=== PATIENT | female | born 1965 | race Caucasian/White ===

== ENCOUNTER → 2021-07-03 08:37 | Outpatient (CLI) | payer BC, SELFPAY ==
--- NOTE | ~2021-07-03 | CT_ITS ---
EXAMINATION: CT abdomen wo/w con EXAM DATE: 07/03/2021 09:16 INDICATION: Renal mass . TECHNIQUE: Spiral CT of the abdomen was performed without and then with intravenous injection of 100 mL Omnipaque 350. Axial, coronal and sagittal images of the abdomen were reviewed. The dose-length product (DLP) for this examination was 716.70 mGy-cm. The exposure was tailored according to patien t size (auto mA exposure control), and iterative reconstruction (ASIR) was used as additional dose re duction technique. Comparison is made to prior examination from 2018. FINDINGS: Retroperitoneal lymphadenopathy, with a left periaortic lymph node measuring 2.6 x 2.6 cm, and several similar sized right retrocaval lymph nodes. These are increased in size compared to prior study. Again there is mesenteric lymphadenopathy, with the largest node identified measuring 2.6 x 2 .3 cm, slight increase compared to prior study. The liver, spleen, adrenal glands and pancreas are u nremarkable. Few small gallbladder wall calcifications, gallbladder otherwise unremarkable. Portal and splenic veins are patent. Kidneys enhance symmetrically. There is no hydronephrosis. There is mild scattered arteriosclerotic disease. There is extensive colonic diverticulosis. There is no adjacent inflammatory change to suggest diver ticulitis. The stomach and small bowel are unremarkable. There is expected amount of colonic stool. No free intraperitoneal gas. The heart is normal in size. There are no pericardial or pleural e ffusions. The lung bases are unremarkable. There are no osteoblastic or osteolytic lesions identifi ed. IMPRESSION: 1. Retroperitoneal and mesenteric lymphadenopathy, differential diagnosis including lymphoma, carcino id tumor, other metastatic disease, granulomatous disease. Could be amenable to CT-guided percutaneou s retroperitoneal biopsy. 2. Extensive colonic diverticulosis. 3. No renal mass. I phoned office of Fredi Gore MD at 07/03/2021 16:04 CARDIOLOGIST. He and physician driller's assistant not av ailable at this time. Will try tomorrow. Reviewed, dictated and finalized at location B. IOLOGIST IMPRESSION: 1. Retroperitoneal and mesenteric lymphadenopathy, differential diagnosis inclu ding lymphoma, carcinoid tumor, other metastatic disease, granulomatous disease . Could be amenable to CT-guided percutaneous retroperitoneal biopsy. 2. Extensive colonic diverticulosis. 3. No renal mass. I phoned office of Fredi Gore MD at 07/03/2021 16:04 CARDIOLOGIST. He and phys danielan driller's assistant not available at this time. Will try tomorrow.
[2021-07-03 09:03] LABS: Estimated Glomerular Filt Rate > 60
== END ==
PROVIDERS: PCP Family Medicine; Visit Provider Urology
DX: N28.89 Other specified disorders of kidney and ureter (principal); R59.0 Localized enlarged lymph nodes; K57.90 Diverticulosis of intestine, part unspecified, without perforation or abscess without bleeding
CPT/HCPCS: 74170; Q9967

== ENCOUNTER 2021-07-25 01:46 | Outpatient (CLI) | payer BC, SELFPAY ==
[2021-07-18 10:54] VITALS: BMI 28.3
--- NOTE | 2021-07-18 10:54 | PC.NURSE ---
Pre Radiology instructions Report to the Outpatient Waiting Room, entrance under the green pavilion located off [facility], at time 0900 on date 07/25/21. Procedure Time: 1100. One visitor will be allowed to accompany the patient into the hospital. The visitor will be instructed to remain with patient at all times or leave the building. We will allow the visitor to come back to the postoperative area when patient is ready. You and your visitor will be asked a series of questions to screen for COVID 19 for your protection. A mask is required within the hospital. Pre-procedure COVID Testing Requirements: No COVID Test needed if: (proof is required; if not received patient will have Rapid Test prior to entry)- Patient has received COVID Vaccine at least 14 days prior to procedure date or- Patient has positive COVID test result within last 90 days of procedure date. Patients are to have no food or drink 6 hours prior to procedure time Driving will be restricted after the procedure, you must have a person to drive you home. Labs will be drawn in preop area and once reviewed, you will be taken to radiology area for procedure. When the procedure is completed, you will be taken to outpatient where you will be monitored for several hours. You may have one visitor in this area. Other than holding anti-coagulants, patient may take other medication(s) as scheduled. Prior to your appointment date patients are instructed to hold anti-coagulants after discussing with ordering provider to stop. If unable to discontinue anti-coagulants please notify radiologist. No aspirin or warfarin (Coumadin) for 7 days prior to the procedure. No clopidogrel (Plavix), ticagrelor (Brilinta), prasugrel (Effient) or dabigatran (Pradaxa) for 5 days prior to the procedure. No rivaroxaban (Xarelto), apixaban (Eliquis), dipyridamole (Aggrenox or Persantine) or cilostazol (Pletal) for 2 days prior to the procedure. Medications to discontinue per physician: N/A Date to take last dose: N/A Please leave all valuables, including medications, at home the day of procedure. The hospital will not accept responsibility for valuables. Wear comfortable, loose fitting clothing. Follow any additional instructions given to you from ordering provider. Telephone instructions given to AUDI FITZGERALD and asked if any additional questions and then verbalized understanding. Patient advised to call scheduling provider office or registration scheduling [phone] if any additional questions.
[2021-07-25] VITALS (8 sets, daily range): BP systolic 105–122; BP diastolic 58–68; PULSE 68–89; RESP 16–20; TEMP 36.7; O2SAT 97–100
--- NOTE | ~2021-07-25 | CT_ITS ---
. EXAMINATION: CT biopsy lymph node DATE: 07/25/2021 11:47 INDICATION: Peroneal lymph node enlargement TECHNIQUE: The procedure including the risks and benefits was discussed with the patient. Risks discu ssed included bleeding and infection. The patient understood the risks and agreed to proceed. The sk in overlying the paraspinal left flank was prepped and draped in usual sterile fashion. Anesthetic w as administered with 1% lidocaine subcutaneously. A 16 gauge outer needle was advanced under CT guid ance to the lesion of interest. An 18 gauge core biopsy needle was then advanced into the lesion. 8 c ore biopsy specimens were obtained, 5 placed in RPMI media and 3 in formalin. The outer needle was re moved and the entry site was cleaned and dressed. There were no immediate complications. The dose-le ngth product was 214.32 mGy-cm. FINDINGS: CT images demonstrate the outer needle tip at the posterior margin of a 2.9 cm left para-ao rtic retroperitoneal lymph node. IMPRESSION: 1. Successful CT-guided biopsy of a 2.9 cm left para-aortic lymph node. Reviewed, dictated and finalized at location A.
[2021-07-25 10:08] LABS: Mean Platelet Volume 9.6 fl (7.4-10.4); Platelet Count Result 334 k/mm3 (150-375)
--- NOTE | 2021-07-25 10:13 | SUR.PREOP ---
FATHER, MALIA HERE WITH PATIENT. CONTACT INFO OBTAINED FOR FATHER
[2021-07-25 10:39] LABS: INR 1.3; Prothrombin Time 15.2 Seconds (11.1-14.7)
== END 2021-07-25 14:15 | disposition home or self-care (01) ==
PROVIDERS: PCP Family Medicine; Referring Provider Urology; Visit Provider Radiology Diagnostic Radiology
PROC: (CPT 77012; principal; 2021-07-25 11:00)
DX: R59.0 Localized enlarged lymph nodes (principal)
CPT/HCPCS: 36415; 38505; 77012; 85049; 85610; 88184; 88305; 88341; 88342; 88364; 88365

== ENCOUNTER 2021-09-05 12:11 | Outpatient (CLI) | payer BC, SELFPAY ==
--- NOTE | ~2021-09-05 | PE_ITS ---
EXAMINATION: PET skull to mid thigh DATE: 09/05/2021 13:58 INDICATION: Hodgkin's lymphoma TECHNIQUE: Blood glucose level was 95 mg/dL. 9.612 mCi of 18-fluorodeoxyglucose (18-FDG) was administ ered i.v. Low dose computed tomography (CT) images were acquired from the base of the brain to the pr oximal thighs for attenuation correction and anatomic localization. Positron emission tomography (PET ) images were acquired in the same distribution beginning 56 minutes after injection. The dose-length product (DLP) was 483.21 mGy-cm. COMPARISON: 07/03/2021 FINDINGS: Head/neck: FDG uptake in the oral cavity and vocal cords without suspicious CT correlate is likely ph ysiologic. There are matted left supraclavicular lymph nodes measuring approximately 3.2 x 1.9 cm in total with abnormal FDG uptake and an SUV max of 4.8. Chest: No abnormal FDG uptake is identified. There is mild dependent atelectasis. The lungs are free of focal airspace opacities. No pathologically enlarged thoracic lymph nodes are identified. The hear t size is normal. There is no pleural effusion or pneumothorax. Abdomen/pelvis/proximal thighs: There is retroperitoneal lymphadenopathy at the level of the kidneys with abnormal FDG uptake and an SUV max of 15. The largest retroperitoneal lymph node measures approx imately 3.2 x 2.4 cm at the level of the right kidney. There is also lymphadenopathy the small bowel mesentery and anterior to the proximal abdominal aorta with abnormal FDG uptake. Physiologic FDG acti vity is present in the bowel and urinary tract. The liver, spleen, pancreas, and adrenal glands are n ormal. Stones are present in the nondistended gallbladder. The kidneys are unremarkable. No pelvic ly mphadenopathy is identified. The appendix is normal. Colonic diverticulosis is present without eviden ce of diverticulitis. Musculoskeletal: No abnormal FDG uptake is identified. IMPRESSION: 1. Left supraclavicular, retroperitoneal, and mesenteric lymphadenopathy with abnormal FDG uptake, co nsistent with Hodgkin's lymphoma. Reviewed, dictated and finalized at location B. IMPRESSION: 1. Left supraclavicular, retroperitoneal, and mesenteric lymphadenopathy with a bnormal FDG uptake, consistent with Hodgkin's lymphoma.
[2021-09-05 12:33] LABS: Glucose Point of Care 95 mg/dl (65-105)
== END 2021-09-05 12:12 | disposition home or self-care (01) ==
PROVIDERS: PCP Family Medicine; Visit Provider Internal Medicine Hematology & Oncology
DX: C81.03 Nodular lymphocyte predominant Hodgkin lymphoma, intra-abdominal lymph nodes (principal)
CPT/HCPCS: 78815; A9552

== ENCOUNTER 2021-10-07 01:03 | Day surgery (SDC) | payer BC, SELFPAY ==
--- NOTE | 2021-10-01 15:34 | SUR.PREOP ---
Report to the Outpatient Waiting Room, entrance under the green pavilion located off [facility], at time 0830 on date 10/07/21. OR Time: 1030. - You and your visitor will be asked a series of questions to screen for COVID 19 for your protection. - Only one visitor is allowed at this time. - The patient visitor is requested to leave or wait in car when not with patient. - A mask is required within the hospital. Patients may have clear liquids (water, carbonated beverages, clear teas, apple juice) until 3 hours prior to surgery with a maximum of 20 ounces. - No food from midnight until time of surgery - Infants may have breast milk until 4 hours before surgery, infant formula 6 hours prior to surgery. - Children will be allowed to drink immediately following surgery. If applicable, please bring a bottle or sippy cup to assist with drinking. Juice, water, soda, and popsicles are readily available. For infants on formula, please bring formula the day of surgery. Pacifiers are allowed. Please no make-up, nail nigerien, hairspray, perfume, deodorant, or body powder the day of surgery. No jewelry (including any body piercings) or valuables the day of surgery, leave them at home. Please take a shower or bath the night before, or the morning of, surgery with an antibacterial soap. Wear comfortable, loose fitting clothing. Children are encouraged to wear pajamas. - Jewelry must be removed prior to entering the operating room. Rings and piercings that are not removed may be cut off. - The hospital will not accept responsibility for valuables. - Please leave all valuables, including medications, at home the day of surgery. If you are going home after surgery, a licensed tour driver must drive you home. - NO public transportation without another adult. - We recommend that an adult stay with you for 24 hours following discharge. - We also recommend that you do not drive, make important decision, drink alcoholic beverages, or take any drugs that were not prescribed by your health care provider for at least 24 hours after your discharge time. For Pediatric surgeries, we recommend two adults accompany the child home (only one inside the building at this time). Follow any additional instructions given to you from your surgeon. If you or anyone in your household have experienced Covid symptoms in the past week, please notify your surgeon or the nurse liaison at the phone number below for possible testing. Telephone instructions given to AUDI FITZGERALD and asked if any additional questions and then verbalized understanding. Patient advised to call surgeon office or pre surgery nurse liaison [phone] if any additional questions.
[2021-10-01 15:44] VITALS: BMI 28.3
[2021-10-07] VITALS (9 sets, daily range): BP systolic 98–154; BP diastolic 59–81; PULSE 63–76; RESP 12–18; TEMP 35.8–36.4; O2SAT 96–100
--- NOTE | 2021-10-07 09:17 | WPDANESEPPF ---
Anes - Initial Pre Proc Eval Procedure: Operation Date: 10/07/21 10:30 Proposed Procedures p Left Supraclavicular Lymph Node Biopsy - Vince Dunn MD Date/Time: 10/07/21 09:17 Surgeon: Vince Dunn MD Pre Op Diagnosis: lymphadenopathy Patient Data Age: 56 Gender: F Height: 1.57 m Weight: 71.2 kg Last Vital Signs Temp 36.2 C L 10/07/21 08:58 Pulse 76 10/07/21 08:58 Resp 16 10/07/21 08:58 BP 131/79 10/07/21 08:58 Pulse Ox 98 10/07/21 08:58 O2 Del Method Room Air 10/07/21 08:58 Allergies Allergy/AdvReac Type Severity Reaction Status Date / Time Penicillins Allergy Mild Rash Verified 10/07/21 08:52 Sulfa (Sulfonamide Allergy Unknown Rash Verified 10/07/21 08:52 Antibiotics) Home Medications Medication Instructions Recorded Confirmed Type cetirizine 10 mg tablet 10 mg PO DAILY 07/18/21 10/07/21 History Patient hx anesthesia problems: none Family hx anesthesia problems: none Results Review: All pre-operative results and documents have been reviewed as part of the pre-operative evaluation. [facility] Past Medical History Medical History Arthralgia BMI 28.0-28.9,adult delivery delivered Dermatitis Dietary counseling and surveillance (01/07/18) Fistula Internal impingement of left shoulder Retroperitoneal lymphadenopathy Surgical History Surgical History H/O section Family History Family History Mother Family history of malignant neoplasm of breast in first degree relative Father Hypertension Mother Breast cancer Family history of lung cancer Other Carcinoma of colon Social History Social History Smoking status: Never smoker Alcohol intake: current Alcohol use details: Socially Substance use: never Substance use type: does not use Additional occupation/education comments: Teacher Gender identity (if verbalized by the patient): Female Spiritual care concerns: No Anes - Eval Final PreProcedure Day of Procedure 10/07/21 09:17 Patient weight: overweight Heart: regular rate and rhythm Lungs: clear to auscultation Airway: Mallampati scale class II Neurological: alert and oriented Last oral intake: >/= 8 hours ASA classification: II Emergent: no Anesthetic plan: proceed Anesthesia type and monitoring: general LMA and standard monitoring Results Review: All pre-operative results and documents have been reviewed as part of the pre-operative evaluation. Informed Consent: The patient's anesthetic plan and its attendant risks and benefits were discussed with the patient/family/POA. Questions were solicited and answers provided to the satisfaction of the patient/family/POA.
[2021-10-07] MEDS: LACTATED RINGERS 1,000 ML 30 ML IV CONT (09:18)
--- NOTE | 2021-10-07 09:29 | WPDHPUPDATE1 ---
History and Physical Update Update Date/Time: 10/07/21 09:29 History and Physical has been reviewed, including an updated exam of the patient. There are NO changes in the patient's condition. Risks, benefits, and alternatives have been discussed and questions answered. Patient agrees to proceed with procedure.
[2021-10-07] MEDS: LIDO 2%/EPINEPHRINE 1:100,000 20 ML VIAL 5 ML INFILTRATE (09:31)
--- NOTE | 2021-10-07 11:59 | SUR.PHASEI ---
1158: Simple mask removed.
--- NOTE | 2021-10-11 16:46 | W.PM.PROC2 ---
Procedure Note - Detailed Date of Procedure 10/07/21 Pre-op Diagnosis 1.lymphadenopathy 2. Status post core biopsy of retroperitoneal lymph nodes suggestive of possible Hodgkin's lymphoma Post-op Diagnosis Same Procedure Performed left supraclavicular lymph node biopsy. Surgeon Vince Dunn MD Outsole Tacker WILNER Do, OR 1st assist Indications please see the outpatient history and physical. The patient has been noted on CT scan and PET scan to have abnormal lymphadenopathy in the retroperitoneum and mesentery. On recent PET scan she also had hot lymph nodes in the supraclavicular area on the left neck. Because these were the most easily to reach for complete lymph node excision to identify better the architecture of lymph nodes and possibly categorize her lymphoma I was asked to consider a supraclavicular lymph node biopsy on the left. The risks, benefits, possible complications were discussed with the patient she seems understand wished to proceed. Findings There were palpable lymph nodes in the supraclavicular area both before and after making the incision. Initial 2 x 3 cm area of fatty tissue removed palpated as if there was at least 1 greater than 1.5 cm lymph node within it. (Fresh gross exam revealed a 2.2 cm lymph node ) this will be processed. However, because grossly looked fatty replaced Dr. cheryl england asked me to consider removing more tissue for further evaluation. Upon palpation another area of nearby lymphadenopathy was identified this was elevated with an Allis and removed. Multiple clips were placed so these will marked the site of the biopsy. At the end of the procedure there were no other palpable lymph nodes within the left supraclavicular space that I can detect. Description of Procedure Patient was placed in the supine position the operative table her head turned slightly to the right and the entire neck and upper chest prepped and draped in usual sterile fashion. Time-out was then performed confirming patient site of surgery being a left supraclavicular area of the chest and neck. Following this palpation of the neck was undertaken and I outlined a transverse incision directly over the palpable fullness just above the left clavicle near the clavicular head. then local anesthetic using 2% xylocaine with epinephrine was injected along the proposed line of incision. A Transverse incision about 3 cm in length was made and this was carried down through the subcutaneous tissues & we carefully spread the muscle in this area and fatty tissue and a fairly large longitudinally running vein were identified. I carefully dissected with a baby right angle close to the vein and we were able to pull up what appeared to be fat containing lymphoid tissue. I then serially dissected around this placing clips on the portions of lymphatics or vessels that were to stay in the patient and then using Bovie cautery with a needle tip to divide the tissues coming to the specimen to be removed. A fatty area suspected of containing lymph nodes about 3 x 2 cm in size was able to be extracted from this area. Because no obviously abnormal lymph nodes were identified during this dissection, this tissue was sent for gross exam to be sectioned looking for lymph nodes. We then achieved hemostasis within the wound which essentially was achieved as we went. We then waited for pathology to call back. Dr. Watosn called back and stated that slicing the tissue showed that there was 1 large node within the tissue that I sent that was 2.2 cm in size but appeared to be largely fatty replaced. Therefore, he recommended going ahead and removing more tissue if there is anything that I could feel in the area. I explained to him that the PET scan showed matted small lymph nodes in the area nothing is big is 2.2 cm in size but he seemed to maintain that this appeared to be a fatty replaced large lymph node. Therefore, I went back to the field and carefully palpated
== END 2021-10-07 13:14 | disposition home or self-care (01) ==
PROVIDERS: PCP Family Medicine; Visit Provider Surgery
PROC: (CPT 38525; principal; 2021-10-07 10:30)
DX: R59.0 Localized enlarged lymph nodes (principal)
CPT/HCPCS: 38525; 88184; 88305; 88329; C1713; J1100; J2250; J2405; J2704; J3010; J7120

== ENCOUNTER 2021-12-23 14:45 | Outpatient (CLI) | payer OTHER, SELFPAY ==
--- NOTE | 2021-12-23 | ECHO_ITS ---
Patient Info Name: Sarah Shannon Age: 56 years : 1965 Gender: Female Ht: 62 in Wt: 150 lbs BSA: 1.74 m2 HR: 68 bpm BP: 135 / 75 mmHg Heart Rhythm: Sinus Rhythm Technical Quality: Good Exam Date: 12/23/2021 3:20 PM Exam Location: [facility] Patient Status: Outpatient Admit Date: 12/23/2021 Staff Ordering Physician: Shanna Diego MD Exam Proctor: Malena Trinh RDCS Attending Provider: Shanna Diego MD Referring Physician: Brandie MARSHALL; Exam Type: CA echo doppler color flow Study Info Indications Z79.899 - HIGH RISK MEDICATIONS LONG-TERM USE Complete two-dimensional, color flow and Doppler transthoracic echocardiogram is performed. Summary 1. Complete two-dimensional, color flow and Doppler transthoracic echocardiogram is performed. 2. Left ventricular chamber dimension is normal. 3. Left ventricular systolic function is normal, estimated at 65-70%. 4. There is no increased left ventricular wall thickness. 5. The left ventricular diastolic function is normal. 6. Global longitudinal strain is normal at -21 %. 7. There is trace tricuspid valve regurgitation. 8. No pulmonary hypertension, estimated pulmonary arterial systolic pressure is 29 mmHg. 9. There is trace mitral valve regurgitation. 10. There is no aortic valve stenosis. Left Ventricle Left ventricular chamber dimension is normal. Left ventricular systolic function is normal, estimated at 65-70%. There is no increased left ventricular wall thickness. The left ventricular diastolic function is normal. Global longitudinal strain is normal at -21 %. Right Ventricle Right ventricular chamber dimension is normal. Right ventricular systolic function is normal. Left Atria Left atrial chamber dimension is normal. Right Atria Right atrial chamber dimension is normal. Aortic Valve The aortic valve is probable trileaflet. There is mild aortic valve sclerosis. There is no aortic valve stenosis. There is no aortic valve regurgitation. Pulmonic Valve The pulmonic valve is not well visualized. Mitral Valve The mitral valve has normal leaflets. There is trace mitral valve regurgitation. The mitral valve annulus is moderately calcified. Tricuspid Valve The tricuspid valve leaflets are normal. There is trace tricuspid valve regurgitation. No pulmonary hypertension, estimated pulmonary arterial systolic pressure is 29 mmHg. Pericardium/Pleural The pericardium appears normal. There is no pericardial effusion. Inferior Vena Cava Normal inferior vena cava with >50% collapse upon inspiration consistent with normal right atrial pressure, 5 mmHg. Aorta The aortic root size at the sinus of Valsalva is normal. Left Ventricular Outflow Tract Name Value Normal LVOT 2D LVOT Diameter 1.9 cm LVOT Doppler LVOT Peak Gradient 5 mmHg LVOT Mean Gradient 3 mmHg LVOT VTI 27 cm LVOT VTI/AV VTI Ratio 0.9 LVOT Stroke Volume 72 ml LVOT CO
== END 2021-12-23 14:46 | disposition home or self-care (01) ==
LOC: ANHCARD 14:49
PROVIDERS: PCP Family Medicine
DX: Z79.899 Other long term (current) drug therapy (principal)
CPT/HCPCS: 93306

== ENCOUNTER 2022-12-01 08:40 | Outpatient (CLI) | payer OTHER, SELFPAY ==
--- NOTE | 2022-12-01 | ECHO_ITS ---
Patient Info Name: Sarah Shannon Age: 57 years : 1965 Gender: Female Ht: 62 in Wt: 145 lbs BSA: 1.71 m2 HR: 67 bpm BP: 113 / 73 mmHg Heart Rhythm: Sinus Rhythm Technical Quality: Good Exam Date: 12/01/2022 9:05 AM Exam Location: [facility] Patient Status: Outpatient Admit Date: 12/01/2022 Staff Ordering Physician: Shanna Diego MD Gas Station Manager: Malena Trinh RDCS Attending Provider: Shanna Diego MD Referring Physician: Brandie MARSHALL; Exam Type: CA echo doppler color flow Study Info Indications Z79.899 - PRISON USE OF HIGH RISK MEDICATION Complete two-dimensional, color flow and Doppler transthoracic echocardiogram is performed. Summary 1. Complete two-dimensional, color flow and Doppler transthoracic echocardiogram is performed. 2. Normal left ventricular size thickness and systolic function with grade 1 diastolic noncompliance. 3. Otherwise unremarkable examination. Left Ventricle Left ventricular chamber dimension is normal. Left ventricular systolic function is normal, estimated at 55-60%. The left ventricular diastolic function is grade I diastolic dysfunction. Right Ventricle Right ventricular chamber dimension is normal. Left Atria Left atrial chamber dimension is normal. Right Atria Right atrial chamber dimension is normal. Aortic Valve The aortic valve is normal. Pulmonic Valve The pulmonic valve is normal. Mitral Valve The mitral valve has normal leaflets. Tricuspid Valve The tricuspid valve leaflets are normal. Pericardium/Pleural The pericardium appears normal. Aorta The aortic root size at the sinus of Valsalva is normal. Left Ventricular Outflow Tract Name Value Normal LVOT 2D LVOT Diameter 1.9 cm LVOT Doppler LVOT Peak Gradient 5 mmHg LVOT Mean Gradient 3 mmHg LVOT VTI 24 cm LVOT VTI/AV VTI Ratio 1.0 LVOT Stroke Volume 72 ml LVOT CO 4.6 l/min LVOT CI 2.7 l/min/m2 Pulmonic Valve Name Value Normal RVOT Doppler RVOT Peak Gradient 2 mmHg PV Doppler PV Peak Gradient 4 mmHg Mitral Valve Name Value Normal MV Doppler MV Decel Posey 344 cm/s2 MV PHT 61 ms MV Area (PHT) 3.6 cm2 4.0-5.0 MV Diastolic Function MV E Peak Velocity 72
== END 2022-12-01 08:41 | disposition home or self-care (01) ==
PROVIDERS: PCP Family Medicine
DX: Z79.899 Other long term (current) drug therapy (principal)
CPT/HCPCS: 93306

== ENCOUNTER 2023-07-17 00:37 | Day surgery (SDC) | payer OTHER, SELFPAY ==
[2023-07-08 16:03] VITALS: BMI 24.2
--- NOTE | 2023-07-15 08:48 | SUR.PREOP ---
Patient called regarding upcoming procedure. Reviewed preop instructions, appointment times, and procedure prep.
[2023-07-17 06:50] VITALS: BP 124/74; PULSE 74; RESP 16; TEMP 36.7; O2SAT 99; BMI 24.7
[2023-07-17] MEDS: LACTATED RINGERS 1,000 ML 150 ML IV CONT (07:13)
--- NOTE | 2023-07-17 08:08 | WPDANESEPPF ---
Anes - Initial Pre Proc Eval Procedure: Operation Date: 07/17/23 08:00 Proposed Procedures p Colonoscopy - Abhinav Singleton MD Date/Time: 07/17/23 08:08 Surgeon: Abhinav Singleton MD Pre Op Diagnosis: Diverticulitis Patient Data Age: 58 Gender: F Height: 1.57 m Weight: 61.5 kg Last Vital Signs Temp 98.1 F 07/17/23 06:50 Pulse 74 07/17/23 06:50 Resp 16 07/17/23 06:50 BP 124/74 07/17/23 06:50 Pulse Ox 99 07/17/23 06:50 O2 Del Method Room Air 07/17/23 06:50 Allergies Allergy/AdvReac Type Severity Reaction Status Date / Time Penicillins Allergy Intermediate Rash Verified 07/17/23 07:00 Sulfa (Sulfonamide Allergy Intermediate Rash Verified 07/17/23 07:00 Antibiotics) Home Medications Medication Instructions Recorded Confirmed Type loratadine 10 mg tablet 10 mg PO DAILY 07/08/23 07/17/23 History ondansetron HCl 4 mg tablet 4 mg PO Q6H PRN Nausea #4 tabs 07/08/23 Rx vit C 250 mg-vit E 200 unit-zinc 1 cap PO DAILY 07/08/23 07/17/23 History ox 12.5 jc-sitdkx-puatxu-zeax capsule (ICaps AREDS2) Patient hx anesthesia problems: none Family hx anesthesia problems: none Results Review: All pre-operative results and documents have been reviewed as part of the pre-operative evaluation. [facility] Past Medical History Medical History (Updated 05/27/23 @ 16:11 by Belinda Brock APRN) Arthralgia BMI 28.0-28.9,adult delivery delivered Dermatitis Dietary counseling and surveillance (01/07/18) Diverticulitis Fistula Internal impingement of left shoulder Retroperitoneal lymphadenopathy Surgical History Surgical History H/O section History of lymph node biopsy left supraclavicular lymph node biopsy 10/11/2021 Family History Family History Mother Family history of malignant neoplasm of breast in first degree relative Father Hypertension Mother Breast cancer Family history of lung cancer Other Carcinoma of colon Social History Social History Smoking status: Never smoker Alcohol intake: current Alcohol use details: Socially Substance use: never Substance use type: does not use Do You Feel Safe in your Home?: Yes Lack of Transportation: No Lack of Food: Never True Current Housing: I Have Housing Concerned About Future Housing: No Difficulty Paying Gas/Electric Bills: No Difficulty Paying for Meds: No Currently Unemployed: No Education: Bachelor's Degree Living arrangements: with family Occupation/Education: occupation Additional occupation/education comments: Teacher Gender identity (if verbalized by the patient): Female Spiritual care concerns: No Anes - Eval Final PreProcedure Day of Procedure 07/17/23 08:08 Patient weight: normal Heart: regular rate and rhythm Lungs: clear to auscultation Airway: Mallampati scale class II Neurological: alert and oriented Last oral intake: >/= 8 hours ASA classification: II Emergent: no Anesthetic plan: proceed Anesthesia type and monitoring: general GIVS and standard monitoring Results Review: All pre-operative results and documents have been reviewed as part of the pre-operative evaluation. Informed Consent: The patient's anesthetic plan and its attendant risks and benefits were discussed with the patient/family/POA. Questions were solicited and answers provided to the satisfaction of the patient/family/POA.
--- NOTE | 2023-07-17 08:12 | PM.HPGS ---
History of Present Illness History of Present Illness Consent: Risks, benefits, and alternatives have been discussed and questions answered. Patient agrees to proceed with procedure. Chief complaint: colon screening Narrative: Sarah Shannon is a 58 year old female here for screening colonoscopy, last one 10 years ago Review of Systems Review of Systems: All systems reviewed & are unremarkable except as noted in HPI and below PMFSH Past Medical History Medical History (Updated 07/17/23 @ 08:13 by Abhinav Singleton MD) Arthralgia BMI 28.0-28.9,adult delivery delivered Colon cancer screening Dermatitis Dietary counseling and surveillance (01/07/18) Diverticulitis Fistula Internal impingement of left shoulder Retroperitoneal lymphadenopathy Surgical History Surgical History H/O section History of lymph node biopsy left supraclavicular lymph node biopsy 10/11/2021 Family History Family History Mother Family history of malignant neoplasm of breast in first degree relative Father Hypertension Mother Breast cancer Family history of lung cancer Other Carcinoma of colon Social History Social History Smoking status: Never smoker Alcohol intake: current Alcohol use details: Socially Substance use: never Substance use type: does not use Do You Feel Safe in your Home?: Yes Lack of Transportation: No Lack of Food: Never True Current Housing: I Have Housing Concerned About Future Housing: No Difficulty Paying Gas/Electric Bills: No Difficulty Paying for Meds: No Currently Unemployed: No Education: Bachelor's Degree Living arrangements: with family Occupation/Education: occupation Additional occupation/education comments: Teacher Gender identity (if verbalized by the patient): Female Spiritual care concerns: No Meds Home Medications and Allergies Home Medications Medication Instructions Recorded Confirmed Type loratadine 10 mg tablet 10 mg PO DAILY 07/08/23 07/17/23 History ondansetron HCl 4 mg tablet 4 mg PO Q6H PRN Nausea #4 tabs 07/08/23 Rx vit C 250 mg-vit E 200 unit-zinc 1 cap PO DAILY 07/08/23 07/17/23 History ox 12.5 rm-fgsept-dccbjs-zeax capsule (ICaps AREDS2) Allergies Allergy/AdvReac Type Severity Reaction Status Date / Time Penicillins Allergy Intermediate Rash Verified 07/17/23 07:00 Sulfa (Sulfonamide Allergy Intermediate Rash Verified 07/17/23 07:00 Antibiotics) Vital Signs Vital Signs - 24 hr 07/17/23 06:50 Temperature 98.1 F Pulse Rate 74 Respiratory Rate 16 Blood Pressure 124/74 Pulse Oximetry 99 Oxygen Delivery Room Air Exam Const: General: comfortable and no acute distress HENMT: Face/Nose/Sinus: Normal nares present Eyes: General: appearance normal, both eyes and all related structures Neck: Neck: no JVD Resp: Auscultation: clear to auscultation bilaterally Cardio: Rate: regular rate Rhythm: regular rhythm GI: Inspection: non-distended GI Palp: Yes Soft to palpation Skin: General skin exam: normal color Neuro: General: gait normal Speech: normal speech Extrem: General: normal to inspection Psych: Mental Status: mental status grossly normal Assessment and Plan Assessment and plan (1) Colon cancer screening: Code(s): Z12.11 - Encounter for screening for malignant neoplasm of colon Status: Acute Assessment and Plan: colonoscopy
[2023-07-17 08:36] VITALS: BP 98/51; PULSE 74; RESP 20; O2SAT 98
[2023-07-17 08:46] VITALS: BP 104/72; BP 105/70; PULSE 76; PULSE 83; RESP 17; RESP 26; O2SAT 99
== END 2023-07-17 08:58 | disposition home or self-care (01) ==
PROVIDERS: PCP Family Medicine; Visit Provider Internal Medicine Gastroenterology
PROC: 0DJD8ZZ Inspection of Lower Intestinal Tract, Via Natural or Artificial Opening Endoscopic (ICD-10-PCS; CPT 45378; principal; 2023-07-17 08:00)
DX: Z12.11 Encounter for screening for malignant neoplasm of colon (principal); K57.30 Diverticulosis of large intestine without perforation or abscess without bleeding
CPT/HCPCS: 45378; J2371; J2704; J7120

== ENCOUNTER 2024-02-10 07:41 | Outpatient (CLI) | payer BC, SELFPAY ==
--- NOTE | ~2024-02-10 | CT_ITS ---
CT of the Abdomen and Pelvis: Indication: Microscopic hematuria Technique: 2.5 mm axial scans were obtained through the abdomen and pelvis prior to and following in travenous administration of 130 cc of Omnipaque 350. Dose reduction technique was used on this scan b y utilizing automated exposure control and iterative reconstruction technique. The dose-length produc t (DLP) was 730.69 mGy-cm. COMPARISON: 07/03/2021 Findings: Scans through the lung bases are unremarkable. The liver, spleen, pancreas, adrenals and kidneys are within normal limits. There is probable gallbla dder wall calcification versus small calcified stones. There are mild atherosclerotic calcifications of the aorta and iliac vessels. No retroperitoneal lymphadenopathy. No bowel obstruction or bowel wall thickening. Small shotty right lower quadrant lymph nodes could re flect mesenteric adenitis. Images through the pelvis were performed. Urinary bladder unremarkable. No pelvic mass seen. No ascit es. Impression: No etiology for hematuria identified. Probable mesenteric adenitis, with small shotty right lower quadrant lymph nodes. Reviewed, dictated and finalized at location . Impression: No etiology for hematuria identified. Probable mesenteric adenitis, with small shotty right lower quadrant lymph node s.
== END 2024-02-10 07:42 | disposition home or self-care (01) ==
PROVIDERS: PCP Family Medicine; Visit Provider Physician Assistant
DX: R31.29 Other microscopic hematuria (principal)
CPT/HCPCS: 74178; Q9967

== ENCOUNTER 2024-03-28 16:00 | Outpatient (CLI) | payer BC, SELFPAY | END 2024-03-28 16:01 | disposition home or self-care (01) | PROVIDERS: PCP Family Medicine; Visit Provider Urology | DX: R31.9 Hematuria, unspecified (principal) | CPT/HCPCS: 87086 ==

== ENCOUNTER 2024-04-05 01:50 | Day surgery (SDC) | payer BC, SELFPAY ==
[2024-03-24 12:56] VITALS: BMI 24.7
--- NOTE | 2024-03-24 13:02 | PC.NURSE ---
Report to the Outpatient Waiting Room, entrance under the green pavilion located off [facility], at time _0730_ on date _[id number]_. Planned Procedure Time: _0930_.? Time changes happen often and if your time is changed the preop area will call you the afternoon before. - You and your visitor will be asked to self-screen and do not enter if you have any COVID symptoms. Please call surgeon if you need to reschedule. - A mask is optional within the hospital at this time. Patients may have clear liquids (water, carbonated beverages, clear teas, apple juice) until 3 hours prior to surgery with a maximum of 20 ounces. - No food from midnight until time of surgery and no smoking. This includes no chewing gum, candy or mints. Take only the following medications with a SIP of water on the morning of surgery: __None DO NOT STOP ANY OF YOUR OTHER PRESCRIPTION MEDICATIONS PRIOR TO SURGERY EXCEPT THE FOLLOWING Medications to discontinue per physician ___Vitamins____ Date to take last dmhs___[phone]____ Please no make-up, nail macedonian, hairspray, perfume, deodorant, or body powder the day of surgery.? No jewelry (including any body piercings) or valuables the day of surgery, leave them at home.? Please take a shower or bath the night before, or the morning of, surgery with an antibacterial soap.? Wear comfortable, loose fitting clothing.? - Jewelry must be removed prior to entering the operating room.? Rings and piercings that are not removed may be cut off. - The hospital will not accept responsibility for valuables.? - Please leave all valuables, including medications, at home the day of surgery. If you are going home after surgery, a licensed helper driver must drive you home.? - NO public transportation without another adult if you receive anesthesia. - We recommend that an adult stay with you for 24 hours following discharge. - We also recommend that you do not drive, make important decision, drink alcoholic beverages, or take any drugs that were not prescribed by your health care provider for at least 24 hours after your discharge time. Follow any additional instructions given to you from your surgeon. Telephone instructions given to __Sarah__and asked if any additional questions and then verbalized understanding. Patient advised to call surgeon office or pre surgery nurse liaison [phone] if any additional questions.
[2024-04-05] VITALS (8 sets, daily range): BP systolic 97–131; BP diastolic 55–73; PULSE 57–73; RESP 12–18; TEMP 36.6–36.7; O2SAT 97–100; BMI 25.0
--- NOTE | 2024-04-05 07:21 | WPDHPUPDATE1 ---
History and Physical Update Update Date/Time: 04/05/24 07:21 History and Physical has been reviewed, including an updated exam of the patient. There are NO changes in the patient's condition. Risks, benefits, and alternatives have been discussed and questions answered. Patient agrees to proceed with procedure.
[2024-04-05] MEDS: LACTATED RINGERS 1,000 ML 30 ML IV CONT (07:50)
--- NOTE | 2024-04-05 08:31 | WPDANESEPPF ---
Anes - Initial Pre Proc Eval Procedure: Operation Date: 04/05/24 09:30 Proposed Procedures p Cystoscopy Bladder Biopsy with Bladder Fulguration - Fredi Gore MD Date/Time: 04/05/24 08:31 Surgeon: Fredi Gore MD Pre Op Diagnosis: hematuria Patient Data Age: 58 Gender: F Height: 1.57 m Weight: 62 kg Last Vital Signs Temp 36.7 C 04/05/24 07:30 Pulse 72 04/05/24 07:30 Resp 18 04/05/24 07:30 BP 114/61 04/05/24 07:30 Pulse Ox 99 04/05/24 07:30 O2 Del Method Room Air 04/05/24 07:30 Allergies Allergy/AdvReac Type Severity Reaction Status Date / Time Penicillins Allergy Intermediate Rash Verified 04/05/24 07:41 Sulfa (Sulfonamide Allergy Intermediate Rash Verified 04/05/24 07:41 Antibiotics) Home Medications Medication Instructions Recorded Confirmed Type loratadine 10 mg tablet 10 mg PO DAILY PRN Allergy Symptoms 07/08/23 03/24/24 History vit C 250 mg-vit E 200 unit-zinc 1 cap PO DAILY 07/08/23 04/05/24 History ox 12.5 jc-spcmpd-wegudj-zeax capsule (ICaps AREDS2) phenazopyridine 95 mg tablet 95 mg PO DAILY 03/24/24 03/24/24 History psyllium husk 3.4 gram/5.4 gram 1 tbsp PO DAILY 03/24/24 03/24/24 History oral powder (Metamucil) Patient hx anesthesia problems: none Family hx anesthesia problems: none Results Review: All pre-operative results and documents have been reviewed as part of the pre-operative evaluation. [facility] Past Medical History Medical History Arthralgia BMI 28.0-28.9,adult delivery delivered Colon cancer screening Dermatitis Dietary counseling and surveillance (01/07/18) Diverticulitis Fistula Internal impingement of left shoulder Retroperitoneal lymphadenopathy Surgical History Surgical History H/O section History of lymph node biopsy left supraclavicular lymph node biopsy 10/11/2021 Family History Family History Mother Family history of malignant neoplasm of breast in first degree relative Father Hypertension Mother Breast cancer Family history of lung cancer Other Carcinoma of colon Social History Social History Smoking status: Never smoker Alcohol intake: current Alcohol use details: Socially Substance use: never Substance use type: does not use Do You Feel Safe in your Home?: Yes Lack of Transportation: No Lack of Food: Never True Current Housing: I Have Housing Concerned About Future Housing: No Difficulty Paying Gas/Electric Bills: No Difficulty Paying for Meds: No Currently Unemployed: No Education: Bachelor's Degree Living arrangements: with family Occupation/Education: occupation Additional occupation/education comments: Teacher Gender identity (if verbalized by the patient): Female Spiritual care concerns: No Anes - Eval Final PreProcedure Day of Procedure 04/05/24 08:31 Patient weight: normal Heart: regular rate and rhythm Lungs: clear to auscultation Airway: Mallampati scale class II Neurological: alert and oriented Last oral intake: >/= 8 hours ASA classification: II Emergent: no Anesthetic plan: proceed Anesthesia type and monitoring: general LMA and standard monitoring Results Review: All pre-operative results and documents have been reviewed as part of the pre-operative evaluation. Informed Consent: The patient's anesthetic plan and its attendant risks and benefits were discussed with the patient/family/POA. Questions were solicited and answers provided to the satisfaction of the patient/family/POA.
[2024-04-05] MEDS: ceFAZolin 2 GM/D5W 50 ML 2 GM/50 ML BAG IVPB (08:51)
--- NOTE | 2024-04-05 09:13 | P.OP_ITS ---
Procedure Note - Detailed Date of Procedure 04/05/24 Pre-op Diagnosis hematuria- Post-op Diagnosis Same Procedure Performed Cysto with bladder biopsy and fulguration Surgeon Fredi Gore MD Anesthesia General Description of Procedure Patient was taken to the operative suite correctly identified. Once anesthesia was obtained she was placed in dorsal lithotomy position and prepped draped usual sterile fashion. Twenty-two Icelandic scope was inserted the bladder. She had some mild erythema along the posterior wall and then some erythema along the trigone was some follicular cysts. I took a biopsy of both areas. I fulgurated the base. The areas actually looked improved from when I saw her in the office. None the less she has done well will call for results in 1 week. This completes dictation. Please send a copy of op note to my office Estimated Blood Loss 0 Drains No Packing No Pathology Yes Complications No immediate complications Condition Stable Disposition PACU
== END 2024-04-05 10:40 | disposition home or self-care (01) ==
PROVIDERS: PCP Family Medicine; Visit Provider Urology
PROC: 0TBB8ZX Excision of Bladder, Via Natural or Artificial Opening Endoscopic, Diagnostic (ICD-10-PCS; CPT 52204; principal; 2024-04-05 09:30)
DX: N30.20 Other chronic cystitis without hematuria (principal); Z98.890 Other specified postprocedural states; Z87.19 Personal history of other diseases of the digestive system; Z80.1 Family history of malignant neoplasm of trachea, bronchus and lung; Z80.3 Family history of malignant neoplasm of breast; Z80.0 Family history of malignant neoplasm of digestive organs
CPT/HCPCS: 52204; 88305; J0690; J1100; J2405; J2704; J3010; J7120